=== PATIENT | female | born 1955 | race Caucasian/White ===

== ENCOUNTER 2022-02-19 05:40 | Day surgery (SDC) | payer MEDICARE, OTHER ==
[2022-02-18 03:12] VITALS: BMI 28.9
[2022-02-19] MEDS ORDERED: fentaNYL PF 100 MCG/2 ML SYRINGE ONE (06:30)
[2022-02-19] MEDS ORDERED: Lidocaine 2% 6 ML SYR ONE (06:30)
[2022-02-19] MEDS ORDERED: Phenylephrine 10 MG/ML VIAL ONE (06:34)
[2022-02-19] MEDS ORDERED: Heparin 10,000 UNITS/ 10 ML VIAL ONE (06:53)
[2022-02-19] MEDS ORDERED: CEFAZOLIN 1 GM VIAL ONE (06:53)
[2022-02-19] MEDS ORDERED: Heparin 25,000 units/D5W 500 ML ONE (06:53)
[2022-02-19] MEDS ORDERED: Protamine Sulfate 50 MG/5 ML VIAL ONE (06:53)
[2022-02-19] MEDS ORDERED: Midazolam HCl 2 mg/2 ml Vial ONE (07:33)
== END 2022-02-19 14:30 | disposition home or self-care (01) ==
LOC: SDC 05:40
PROVIDERS: ATTEND Internal Medicine Cardiovascular Disease
PROC: B246ZZ4 Ultrasonography of Right and Left Heart, Transesophageal (ICD-10-PCS; principal; 2022-02-19)
PROC: 02583ZZ Destruction of Conduction Mechanism, Percutaneous Approach (ICD-10-PCS; 2022-02-19)
PROC: 02K83ZZ Map Conduction Mechanism, Percutaneous Approach (ICD-10-PCS; 2022-02-19)
PROC: 4A023FZ Measurement of Cardiac Rhythm, Percutaneous Approach (ICD-10-PCS; 2022-02-19)
PROC: 4A0234Z Measurement of Cardiac Electrical Activity, Percutaneous Approach (ICD-10-PCS; 2022-02-19)
DX: I48.4 Atypical atrial flutter (principal); I48.0 Paroxysmal atrial fibrillation; I08.1 Rheumatic disorders of both mitral and tricuspid valves; R00.0 Tachycardia, unspecified; I42.2 Other hypertrophic cardiomyopathy; I44.2 Atrioventricular block, complete; I50.32 Chronic diastolic (congestive) heart failure; E78.5 Hyperlipidemia, unspecified; K21.9 Gastro-esophageal reflux disease without esophagitis; E55.9 Vitamin D deficiency, unspecified; Z79.01 Long term (current) use of anticoagulants; Z79.84 Long term (current) use of oral hypoglycemic drugs; Z79.899 Other long term (current) drug therapy; Z88.5 Allergy status to narcotic agent; Z88.8 Allergy status to other drugs, medicaments and biological substances; Z91.040 Latex allergy status; Z91.048 Other nonmedicinal substance allergy status; Z95.0 Presence of cardiac pacemaker
CPT/HCPCS: 85347; 93005; 93312; 93656; J0690; J1644; J2250; J2370; J2720